=== PATIENT | female | born 1930 | race Caucasian/White ===

== ENCOUNTER 2018-03-14 16:56 | Emergency (ER) | payer MEDICARE, OTHER ==
--- NOTE | 2018-03-14 17:28 | ED.PDOC ---
History of Present Illness - General Chief Complaint: GI Problem Time Seen by Provider: 03/14/18 17:25 Information Source: patient, family Exam Limitations: other - hearing impairment but able to communicate - History of Present Illness Initial Comments: patient comes in today for nausea, vomiting, and diarrhea. Patient states last night she started with emesis 3 with last episode at 2:30 this morning. Since then she has been able to tolerate a bland diet of crackers and 8 whites and some Gatorade. However, she also had some loose stools that were watery-like in consistency and 3 in number of episodes. She denies any abdominal pain or discomfort. She has had no questionable by mouth intake. She is visiting her daughter here in town. The family has not been ill. She has no fever, chills , cough or cold symptoms. She did receive her flu shot yesterday. She had urine output approximately 3 hours ago. Abdominal Pain Onset Location: generalized abdomen Pain Radiation: no radiation Quality: mild Timing/Duration: 24 hours Improving Factors: nothing Worsening Factors: nothing Associated Symptoms: diarrhea, nausea/vomiting Review of Systems - Review of Systems Constitutional: States: no symptoms reported. Denies: chills, fever, weakness EENTM: States: no symptoms reported. Denies: eye pain, ear pain, nose pain, nose congestion Respiratory: States: no symptoms reported. Denies: cough, short of breath, wheezing Cardiology: States: no symptoms reported. Denies: chest pain, edema, palpitations Gastrointestinal/Abdominal: States: see HPI Genitourinary: States: no symptoms reported Past Medical History (General) - Patient Medical History Hx Stroke: No Hx Dementia: No Hx of COPD: No Hx Cardiac Disorders: Yes - stents Hx Hypertension: Yes Hx Diabetes: No Surgical History: Hysterectomy Family Medical History - Family History Mother Family History: No Known Physical Exam - Physical Exam General Appearance: Alert, No apparent distress Eyes, Ears, Nose, Throat Exam: PERRL/EOMI, normal ENT inspection, TMs normal, other - moist mucous membranes Neck: non-tender, full range of motion, supple Respiratory: chest non-tender, lungs clear, normal breath sounds Cardiovascular/Chest: normal peripheral pulses, regular rate, rhythm, no murmur Peripheral Pulses: No deficit Gastrointestinal/Abdominal: normal bowel sounds, non tender, soft Neurologic: alert, oriented x 3 Progress - Progress Progress: 03/14/18 18:03 Discussed with daughter hypokalemia and her and patient are adamant that they want to be discharged home to try and replace potassium by mouth. She understands that low potassium can cause aarrhythmias and that we are willing to give IVF with KCL here in ER or via observation in the hospital. They will carefully monitor her diarrhea at home and if she does not tolerate K or it worsens, they will come back to ER to have it checked tomorrow. KCL given here and Rx to fill tomorrow. Patient to follow up for blood work in clinic on Friday. - Results/Orders Results/Orders: Laboratory Results WBC 6.5 K/mm3 (4.8-10.8) 03/14/18 17:25 RBC 4.65 M/mm3 (4.20-5.40) 03/14/18 17:25 Hgb 14.8 gm/dL (12.0-16.0) 03/14/18 17:25 Hct 44.0 % (36.0-47.0) 03/14/18 17:25 MCV 94.6 fl (81.0-99.0) 03/14/18 17:25 MCH 31.7 pg (27.0-31.0) H 03/14/18 17:25 MCHC 33.5 g/dL (33.0-37.0) 03/14/18 17:25 RDW 15.3 % (11.5-14.5) H 03/14/18 17:25 Plt Count 203 K/mm3 (130-400) 03/14/18 17:25 MPV 7.9 fl (7.40-10.4) 03/14/18 17:25 Absolute Neuts (auto) 5.30 K/uL (1.8-6.8) 03/14/18 17:25 Absolute Lymphs (auto) 0.40 K/uL (1.0-3.4) L 03/14/18 17:25 Absolute Monos (auto) 0.70 K/uL (0.2-0.8) 03/14/18 17:25 Absolute Eos (auto) 0.00 K/uL (0.0-0.4) 03/14/18 17:25 Absolute Basos (auto) 0.00 K/uL (0.0-0.1) 03/14/18 17:25 Neutrophils % 82.1 % (42.0-78.0) H 03/14/18 17:25 Lymphocytes % 6.8 % (20.0-50.0) L 03/14/18 17:25 Monocytes % 10.2 % (2.0-9.0) H 03/14/18 17:25 Eosinophils % 0.6 % (1.0-5.0) L 03/14/18 17:25 Basophils % 0.3 % (0.0-2.0) 03/14/18 17:25 Sodium 136 mmol/L (135-145) 03/14/18 17:25 Potassium 2.9 mmol/L (3.6-5.0) L 03/14/18 17:25 Chloride 95 mmol/L (101-111) L 03/14/18 17:25 Carbon Dioxide 29 mmol/L (21-31) 03/14/18 17:25 Anion Gap 14.9 (12-18) 03/14/18 17:25 BUN 31 mg/dL (7-18) H 03/14/18 17:25 Creatinine 1.13 mg/dL (0.6-1.3) 03/14/18 17:25 BUN/Creatinine Ratio 27.4 (10-20) H 03/14/18 17:25 Random Glucose 92 mg/dL (70-105) 03/14/18 17:25 Serum Osmolality 278.1 mOsm/L (275-295) 03/14/18 17:25 Calcium 8.3 mg/dL (8.4-10.2) L 03/14/18 17:25 Total Bilirubin 1.1 mg/dL (0.2-1.0) H 03/14/18 17:25 AST 25 IU/L (10-42) 03/14/18 17:25 ALT 23 IU/L (10-60) 03/14/18 17:25 Alkaline Phosphatase 54 IU/L (42-121) 03/14/18 17:25 Serum Total Protein 6.9 gm/dL (6.4-8.2) 03/14/18 17:25 Albumin 3.7 g/dl (3.2-5.5) 03/14/18 17:25 Globulin 3.2 gm/dL (2.3-3.5) 03/14/18 17:25 Albumin/Globulin Ratio 1.2 (1.1-1.9) 03/14/18 17:25 Departure - Departure Clinical Impression: Gastroenteritis, Hypokalemia due to loss of potassium Disposition: Discharge to Home or Self Care Condition: Good Departure Forms: ED Discharge - Pt. Copy, Patient Portal Self Enrollment Home Medications: Ambulatory Orders Potassium Chloride [K-Tab] 20 meq PO BID 3 Days #6 tab 03/14/18 Additional Instructions: return to ER if not tolerating po potassium, irregular heart rate, or worsening of diarrhea. Follow up in clinic on Friday to recheck level
[2018-03-14 17:34] VITALS: TEMP 98.5
[2018-03-14] MEDS ORDERED: POTASSIUM CHLORIDE 20 MEQ TAB PO ONE (18:06)
[2018-03-14 18:21] VITALS: BP 123/58; O2SAT 92
== END 2018-03-14 18:21 | disposition home or self-care (01) ==
LOC: ER 16:56
DX: K52.9 Noninfective gastroenteritis and colitis, unspecified (principal); E87.6 Hypokalemia; I10 Essential (primary) hypertension; Z95.5 Presence of coronary angioplasty implant and graft